=== PATIENT | male | born 1995 | race Two or more races ===

== ENCOUNTER 2016-08-08 06:00 | Emergency (ER) | payer BC, OTHER ==
[~2016-08-08] VITALS: Ht 165.1 cm; Wt 77.1 kg
[2016-08-08 06:25] VITALS: BP 124/58
[2016-08-08] MEDS ORDERED: IV NORMAL SALINE 1000ML BAG 1,000 ML IV ONE (06:45)
[2016-08-08] MEDS ORDERED: DIPHENHYDRAMINE 50 MG/ML VIAL IVP ONE (07:00)
[2016-08-08] MEDS ORDERED: METOCLOPRAMIDE HCL 10 MG/2 ML VIAL. IV ONE (07:00)
[2016-08-08] MEDS ORDERED: KETOROLAC TROMETHAMINE 30 MG/ML SYRINGE. IV ONE (07:00)
[2016-08-08] MEDS ORDERED: PROM25TA10 PO (07:29)
--- NOTE | 2016-08-08 07:29 | PHYS DOC ---
Past Medical History Past Medical History: No Pertinent History Past Surgical History: Other Additional Past Surgical Histo: LEFT HAND SURGERY Alcohol Use: None Drug Use: None Adult General Chief Complaint Chief Complaint: HEADACHE HPI HPI 20-year-old male presents with headache since 10 PM last night. He states the headache is throbbing in nature and very severe. He states it kept him up all night. He denies any lateralizing neurologic weakness. He denies fever or neck pain. He states he's never really had a headache in the past. [] Review of Systems Review of Systems Constitutional: Denies fever or chills [] Eyes: Denies change in visual acuity, redness, or eye pain [] HENT: Denies nasal congestion or sore throat [] Respiratory: Denies cough or shortness of breath [] Cardiovascular: No additional information not addressed in HPI [] GI: Denies abdominal pain, nausea, vomiting, bloody stools or diarrhea [] : Denies dysuria or hematuria [] Musculoskeletal: Denies back pain or joint pain [] Integument: Denies rash or skin lesions [] Neurologic: Per history of present illness [] Endocrine: Denies polyuria or polydipsia [] Current Medications Current Medications Current Medications Medications (Trade) Dose Ordered Sig/Rebekah Start Time Stop Time Status Last Admin Dose Admin Diphenhydramine HCl (Benadryl) 25 mg 1X ONCE 08/08/16 07:00 08/08/16 07:01 DC 08/08/16 06:58 25 MG Ketorolac Tromethamine (Toradol) 30 mg 1X ONCE 08/08/16 07:00 08/08/16 07:01 DC 08/08/16 06:57 30 MG Metoclopramide HCl (Reglan) 10 mg 1X ONCE 08/08/16 07:00 08/08/16 07:01 DC 08/08/16 06:58 10 MG Sodium Chloride (Iv Sodium Chloride 0.9% 1000ml Bag) 1,000 ml @ 1,000 mls/hr 1X ONCE 08/08/16 06:45 08/08/16 07:44 DC 08/08/16 06:57 1,000 MLS/HR Allergies Allergies Allergies Coded Allergies Type Severity Reaction Last Updated Verified No Known Drug Allergies 11/10/15 No Physical Exam Physical Exam Constitutional: Well developed, well nourished, no acute distress, non-toxic appearance. [] HENT: Normocephalic, atraumatic, bilateral external ears normal, oropharynx moist, no oral exudates, nose normal. [] Eyes: PERRLA, EOMI, conjunctiva normal, no discharge. [] Neck: Normal range of motion, no tenderness, supple, no stridor. [] Cardiovascular:Heart rate regular rhythm, no murmur [] Lungs & Thorax: Bilateral breath sounds clear to auscultation [] Abdomen: Bowel sounds normal, soft, no tenderness, no masses, no pulsatile masses. [] Skin: Warm, dry, no erythema, no rash. [] Back: No tenderness, no CVA tenderness. [] Extremities: No tenderness, no cyanosis, no clubbing, ROM intact, no edema. [] Neurologic: Alert and oriented X 3, normal motor function, normal sensory function, no focal deficits noted. [] Psychologic: Affect normal, judgement normal, mood normal. [] Current Patient Data Vital Signs Vital Signs Date Time Temp Pulse Resp B/P Pulse Ox O2 Delivery O2 Flow Rate FiO2 08/08/16 06:25 98.4 85 18 124/58 96 Room Air 98.4 EKG EKG [] Radiology/Procedures Radiology/Procedures [] Impressions: CT head: Negative exam as interpreted by me Course & Med Decision Making Course & Med Decision Making Pertinent Labs and Imaging studies reviewed. (See chart for details) [ED course: By which reveals a 20-year-old healthy male with a migraine type headache. He was given IV fluids and Toradol Reglan and Benadryl during her stay in the emergency department which completely eliminated his headache. Patient is stable for discharge home] Dragon Disclaimer Dragon Disclaimer This electronic medical record was generated, in whole or in part, using a voice recognition dictation system. Departure Departure Impression: Primary Impression: Headache Disposition: 01 HOME, SELF-CARE Condition: STABLE Referrals: HALEY DUCKWORTH MD (PCP) Patient Instructions: Migraine Headache Additional Instructions: Thank you for allowing us to participate in your care today. Followup with your primary care physician in 3 days if your symptoms do not improve. Return to the emergency department you have any new or concerning findings. This should be evaluated by the primary care physician and any necessary consulting services for continued management within a few days after discharge. Return to emergency room if you have any new or concerning symptoms including but not limited to fever, chills, nausea, vomiting, intractable pain, any new rashes, chest pain, shortness of air, uncontrolled bleeding, difficulty breathing, and/or vision loss. You may have been prescribed medication that can change in your level of thinking and ability to operate machinery. These medications include hydrocodone and Ativan. Also, Benadryl has been known to do this as well. Be sure to check with your pharmacist and ask if the medications you've prescribed can affect your level of consciousness. I recommend not operating heavy machinery or driving while on medication such as these. Scripts Promethazine Hcl 25 Mg Tablet1 Tab PO PRN Q6HRS HEADACHE #20 TAB Prov:MERVIN DALLAS DO 08/08/16 MERVIN DALLAS DO Aug 08, 2016 07:29
--- NOTE | 2016-08-08 09:10 | RAD ---
Indication severe headache. Noncontrast images of the head were obtained. No prior imaging is available. The study is moderately limited secondary to patient motion. No acute calvarial finding is seen. There is some mucosal thickening seen associated with the left maxillary sinus. Mild sinusitis is not excluded. No subdural or epidural hematoma is seen. There is some calcification of the basal ganglia. This is somewhat unusual for a 20 but can be seen in some syndrome disorders. (Fahrs disease. Postinflammatory conditions among others) There is no definite hemorrhage. A mass or midline shift is not seen. IMPRESSION: Moderately limited study secondary to patient motion. No definite acute finding. Possible mild sinusitis. Physiologic calcification of the basal ganglia. This is unusual for patient of this age PQRS Compliance Statement: One or more of the following individualized dose reduction techniques were utilized for this examination: 1. Automated exposure control 2. Adjustment of the mA and/or kV according to patient size 3. Use of iterative reconstruction technique
== END 2016-08-08 08:50 | disposition home or self-care (01) ==
LOC: ER 06:00
DX: R51 Headache (principal)
CPT/HCPCS: 70450; 96361; 96374; 96375; 99284; J1200; J1885; J2765; J7030